=== PATIENT | male | born 1980 | race American Indian/Alaskan Native ===

== ENCOUNTER 2017-12-09 02:14 | Emergency (ER) | payer MEDICARE ==
[2017-12-09 02:27] VITALS: BP 117/75
--- NOTE | 2017-12-09 03:19 | Emergency Department Report ---
ED Extremity Problem HPI - General Chief complaint: Extremity Injury, Lower Stated complaint: RIGHT LEG PAIN Time Seen by Provider: 12/09/17 03:11 Source: patient Mode of arrival: Ambulatory Limitations: No Limitations - History of Present Illness Initial comments: 37-year-old -[place] male comes to the emergency room complaining of right leg swelling and pain started today. Patient reports that he has a past medical history of tib-fib fracture with the staff infection. He reports he is followed by pain management in [place] that gives him Percocet, Flexeril, fentanyl and morphine. Patient comes to the ER requesting for pain meds. Patient reports that he's been walking too much and wants pain meds Patient has no past medical history surgical history right lower leg. -: days(s) Location: right, lower extremity History of Same: Yes -: Yes arthralgia Radiation: none Severity scale (0 -10): 10 Quality: aching, sharp Consistency: constant Improves with: medication, rest Worsens with: walking Associated Symptoms: denies other symptoms - Related Data Previous Rx's Medication Instructions Recorded Last Taken Type Ibuprofen [Motrin 800 MG tab] 800 mg PO Q8HR #30 tablet 12/09/17 Unknown Rx Allergies Allergy/AdvReac Type Severity Reaction Status Date / Time No Known Allergies Allergy Unverified 12/09/17 02:37 ED Review of Systems ROS: Stated complaint: RIGHT LEG PAIN Other details as noted in HPI Constitutional: denies: chills, fever Eyes: denies: eye pain, eye discharge, vision change Musculoskeletal: arthralgia ED Past Medical Hx - Past Medical History Previous Medical History?: No - Surgical History Past Surgical History?: Yes Additional Surgical History: RLE - Social History Smoking Status: Current Every Day Smoker Substance Use Type: Alcohol, Marijuana - Medications Home Medications: Home Medications Medication Instructions Recorded Confirmed Last Taken Type Ibuprofen [Motrin 800 MG tab] 800 mg PO Q8HR #30 tablet 12/09/17 Unknown Rx ED Physical Exam - General Limitations: No Limitations General appearance: alert, in no apparent distress - Head Head exam: Present: atraumatic, normocephalic - Expanded Lower Extremity Exam Right Hip exam: Present: full ROM Upper Leg exam: Present: normal inspection, full ROM Knee exam: Present: normal inspection, full ROM. Absent: tenderness Lower Leg exam: Present: full ROM. Absent: tenderness, swelling, palpable cord , Kirill's sign Ankle exam: Present: tenderness, deformity (chronic), dislocation ( hyperpigmented with scarring chronic in appearance) Foot/Toe exam: Present: normal inspection, full ROM, swelling (chronic swelling no pain edema). Absent: abrasion, ecchymosis, erythema Neuro vascular tendon exam: Present: no vascular compromise - Neurological Exam Neurological exam: Present: alert, oriented X3 - Psychiatric Psychiatric exam: Present: normal affect, normal mood - Skin Skin exam: Present: warm, dry, intact, normal color. Absent: rash ED Course Vital Signs 12/09/17 02:22 Temperature 98.4 F Pulse Rate 109 H Respiratory 18 Rate Blood Pressure 117/75 O2 Sat by Pulse 94 Oximetry Critical care attestation.: If time is entered above; I have spent that time in minutes in the direct care of this critically ill patient, excluding procedure time. ED Disposition Clinical Impression: Chronic pain of right lower extremity Disposition: DC-01 TO HOME OR SELFCARE Is pt being admited?: No Does the pt Need Aspirin: No Condition: Stable Additional Instructions: Please take pain medication as prescribed. Please follow-up which is pain management provider for further management of your chronic pain. Prescriptions: Ibuprofen [Motrin 800 MG tab] 800 mg PO Q8HR #30 tablet Referrals: SNEHAL ENCINAS MD [Primary Care Provider] - 3-5 Days [facility] [Other] - 3-5 Days
[2017-12-09] MEDS ORDERED: MOTRIN PO ONE (03:21)
== END 2017-12-09 04:07 | disposition home or self-care (01) ==
LOC: ED 02:14
DX: M79.661 Pain in right lower leg (principal); G89.29 Other chronic pain; R22.41 Localized swelling, mass and lump, right lower limb; F17.200 Nicotine dependence, unspecified, uncomplicated; F12.10 Cannabis abuse, uncomplicated
CPT/HCPCS: 99282